=== PATIENT | female | born 1985 | race African-American/Black ===

== ENCOUNTER 2019-09-12 18:45 | Emergency (ER) | payer OTHER, SELFPAY ==
--- NOTE | 2019-09-12 18:53 | ED.GENADULT ---
HPI - General Adult General Chief complaint: Skin/Abscess/Foreign Body Stated complaint: Boil/L/arm Time Seen by Provider: 09/12/19 18:54 Source: patient Mode of arrival: ambulatory Limitations: no limitations History of Present Illness HPI narrative: 34-year-old female patient presents to the [facility] with complaints of a boil to the left underarm x3 days. Patient states that she has a history of this and has been following up with her primary doctor. Patient states she just finished Bactrim on Saturday for some other boils in other places that was given to her by her primary doctor. Patient states that this boil today has been there for about 3 days and is very painful and feels like there is a lot of pressure. Denies any fevers that she is aware of. Related Data Home Medications Medication Instructions Recorded Confirmed carvedilol [Coreg] 25 mg PO BID 07/08/19 09/12/19 losartan 100 mg PO DAILY 07/08/19 09/12/19 nifedipine 90 mg PO DAILY 07/08/19 09/12/19 triamterene-hydrochlorothiazid 1 cap PO DAILY 07/08/19 09/12/19 [Dyazide] Allergies Allergy/AdvReac Type Severity Reaction Status Date / Time morphine Allergy Unknown ITCHING Verified 07/08/19 15:50 Review of Systems Review of Systems: Narrative: CONSTITUTIONAL: Denies fever, chills, or sweats. EYES: Denies visual changes, redness, or discharge. ENT: Denies rhinorrhea, congestion, sore throat, or otalgia. CARDIOVASCULAR: Denies chest pain, palpitations, or edema. RESPIRATORY: Denies cough or dyspnea. GASTROINTESTINAL: Denies abdominal pain, nausea, vomiting, or diarrhea. GENITOURINARY: Denies dysuria or hematuria. SKIN: Denies rash or itching. Positive boil to left underarm x3 days MUSCULOSKELETAL: Denies back pain, joint pain, or myalgia. NEUROLOGIC: Denies headache, numbness, or weakness. PSYCHIATRIC: Denies anxiety or depression. [facility] Past Medical History Medical History (Updated 09/12/19 @ 19:17 by DORCAS Watkins) Abscesses of both axillae Anemia Hypertension Leukocytosis Surgical History Surgical History (Updated 09/12/19 @ 18:56 by DORCAS Watkins) History of Hx of cholecystectomy Hx of tonsillectomy Social History Social History Alcohol intake: current Comments At the time of my signature I agree with nursing past medical history, surgical, social, and family history. There is no relevant family history pertinent to the presenting complaint. Exam Narrative: Exam Narrative: GENERAL: Well-appearing, well-nourished, and in no acute distress. HEAD: Normocephalic, atraumatic. EYES: PERRLA and EOMI. ENT: Nares clear, no rhinorrhea or epistaxis. Mucous membranes moist. NECK: Supple. No lymphadenopathy CHEST: Clear to auscultation. No respiratory distress. HEART: Regular rate and rhythm. No murmur heard. Normal peripheral pulses. ABDOMEN: Soft, nontender, nondistended, normal active bowel sounds. EXTREMITIES: Normal range of motion. No edema. SKIN: Warm, dry, no rash. Patient has an abscess noted to the left axilla area with tenderness, is raised with some hardness area. The raised area does appear to be about 5 to 6 cm in length. There is some surrounding erythema along with some warmth noted to the area. NEURO: No focal deficits. Alert and oriented x3. Course Vital Signs Vital signs: Vital Signs Temperature 35.8 C L 09/12/19 18:54 Pulse Rate 79 09/12/19 18:54 Respiratory Rate 16 09/12/19 18:54 Blood Pressure 152/89 H 09/12/19 18:54 Pulse Oximetry 98 09/12/19 18:54 Temperature 35.8 C L 09/12/19 18:54 Pulse Rate 79 09/12/19 18:54 Respiratory Rate 16 09/12/19 18:54 Blood Pressure 152/89 H 09/12/19 18:54 Pulse Oximetry 98 09/12/19 18:54 Vital signs reviewed. The patient has been informed that they may have pre-hypertension or Hypertension based on a BP reading in the department. I recommend that the patient call the pr
[2019-09-12 18:54] VITALS: BP 152/89; PULSE 79; RESP 16; TEMP 35.8; O2SAT 98
--- NOTE | 2019-09-12 19:20 | PC.NURSE ---
I&D completed by provider pt tolerated procedure well.
== END 2019-09-12 19:25 | disposition home or self-care (01) ==
PROVIDERS: Emergency Provider Nurse Practitioner Family; PCP Internal Medicine Infectious Disease
DX: L02.412 Cutaneous abscess of left axilla (principal); I10 Essential (primary) hypertension
CPT/HCPCS: 10060; 87070; 87075; 87076; 87077; 87186; 87205; 99213; G0463

== ENCOUNTER 2021-10-03 12:43 | Outpatient (CLI) | payer OTHER, SELFPAY ==
--- NOTE | ~2021-10-03 | XR_ITS ---
EXAMINATION: XR knee RT min 4V DATE: 10/03/2021 13:06 INDICATION: Right knee pain. TECHNIQUE: 4 views of right knee were obtained. COMPARISON: None. FINDINGS: There is lateral subluxation of patella. No fracture. There is moderate osteoarthritis of l ateral and patellofemoral compartments and mild osteoarthritis of medial compartment. There is a smal l knee joint effusion. IMPRESSION: 1. Moderate right knee osteoarthritis. 2. Small knee joint effusion. Reviewed, dictated and finalized at location A. RGRADUATE INTERN
== END 2021-10-03 12:44 | disposition home or self-care (01) ==
LOC: ANHIMG 12:47
PROVIDERS: PCP Internal Medicine Infectious Disease; Visit Provider Internal Medicine Infectious Disease
DX: M17.11 Unilateral primary osteoarthritis, right knee (principal); M25.461 Effusion, right knee
CPT/HCPCS: 73564

== ENCOUNTER 2021-11-20 13:15 | Outpatient (RCR) | payer OTHER, SELFPAY ==
--- NOTE | 2021-10-23 15:36 | PTOPEVAL ---
Thank you for referring Ally Benjamin to [facility].? The patient is scheduled to be seen for therapy? 2 x/week for 4 weeks. Please review, sign, date and return this plan of care RYAN. I agree with and certify that the following plan of care is medically necessary. Referring Physician Date Attending Provider: Rayo AgudeloShoaib Referring Provider: Rayo AgudeloShoaib Diagnosis right knee pain Onset 1 month ago Cause unknown Subjective Information She reports chronic knee pain, Query Text:As Reported By Patient/ but this is more intense pain. Family She did have difficulty walking initially, but has improved. Reports limitations with walking, steps, prolonged standing and walking, daily task. Denies any exercise program. No previous therapy. She works at [employer] (now [employer]) with lots of standing. She has applied a muscle rub without improved symptoms. Diagnostic Tests X-Rays For This Problem Yes: Moderate right knee osteoarthritis. Pain Assessment Right Knee(s) Reported Pain Level 0 Pain Description Aching,Dull,Tender on Palpation Pain Frequency Chronic Lowest Pain Intensity 0 Greatest Pain Intensity 5 Lower Extremity Range of Motion General Lower Extremity Range of Motion Limitations Pain Gross Lower Extremity Range of Motion left knee flex: 90 dg Comments right knee flex: 88 dg, painful ROM limited by excessive soft tissue Lower Extremity Muscle Strength Testing Hip Strength Bilateral Hip Flexion Strength 4+ Good + Hip Extension Strength 3- Fair - Hip Abduction Strength 2 Poor Hip Adduction Strength 2+ Poor + Hip Strength Comments pain with right hip resistance partial bridge Knee Strength Bilateral Knee Flexion Strength 4+ Good + Knee Extension Strength 5 Normal Knee Strength Comments tested in seated position Posture Standing Position Weight Distribution Decreased Wt.Bear on (R) Hip Posture (R) Externally Rotated Knee Posture (L) Genu Recurvatum Palpation Assessment Palpation tenderness of lateral edges of right patella and inf asp
--- NOTE | 2021-11-20 15:31 | PTOPEVAL ---
Thank you for referring Ally Benjamin to [facility].? The patient is scheduled to be seen for therapy? ____x/week for ___ weeks. Please review, sign, date and return this plan of care RYAN. I agree with and certify that the following plan of care is medically necessary. Referring Physician Date Admitting Provider: Attending Provider: Rayo AgudeloShoaib Referring Provider: Rayo AgudeloShoaib *PT Outpatient Evaluation Start: 10/23/21 14:35 Freq: Status: Active Protocol: Document 11/20/21 13:17 RACHEL (Rec: 11/20/21 14:04 [facility] [id number]) Therapy Assessment Status Assessment Status Assessment Status Re-evaluation Outpatient Past Medical History Past Medical History Source of Past Medical History Recalled from Previous Visit, Confirmed with Patient/Family Cardiovascular History Hx Hypertension Yes Musculoskeletal History Hx Arthritis Yes: right knee Integumentary History Hx Other Skin Disorders Yes: h/o abcess Evaluation Information Problem Diagnosis right knee pain Onset 1 month ago Cause unknown Additional Evaluation Detail She reports chronic knee pain, but this is more intense pain . Subjective Information Reports her knee pain is Query Text:As Reported By Patient/ better with therapy. She has Family decreased intensity. She is performing her HEP. Reports improved fatoumata with walking. Main issues is transitioning from sit<>stand. She has not tried recipricol pattern on steps. She denies any issues with prolonged standing at work. Pain Assessment Timing of Pain Assessment Timing of Pain Assessment Re-assessment Pain Scale Pain Scale Used Numeric (1 - 10) Self Report Pain Assessment Right Knee(s) Reported Pain Level 2 Pain Description Tightness Pain Frequency Chronic Lowest Pain Intensity 0 Greatest Pain Intensity 2 Pain Score Pain Score 2: Self Report Interventions Used Interventions Used By Clinicians Education,Exercise Lower Extremity Range of Motion General Lower Extremity Range of Motion Gross Lower Extremity Range of Motion no pain with knee motions in Comments seated position Lower Extremity Muscle Strength Testing Hip Strength Bilateral Hip Flexion Strength 4+ Good + Hip Abduction Strength 2+ Poor + Hip Adduction Strength 2+ Poor + Hip Strength C
--- NOTE | 2021-11-20 15:32 | PTOPEVAL ---
Physical Therapy Discharge Summary Thank you for referring Ally Benjamin to [facility].? She has attended 9 therapy visits to address her knee pain. She has improved with pain, leg strength, and function. She has partially met to met her therapy goals at this time. Will DC skilled therapy services with recommendations to continue with HEP. Please review, sign, date and return this discharge summary RYAN. I agree with and certify that the following plan of care is medically necessary. Referring Physician Date Attending Provider: Rayo AgudeloShoaib Referring Provider: Rayo Agudelo, Shoaib Diagnosis right knee pain Onset 1 month ago Cause unknown Additional Evaluation Detail She reports chronic knee pain, but this is more intense pain Subjective Information Reports her knee pain is Query Text:As Reported By Patient/ better with therapy. She has Family decreased intensity. She is performing her HEP. Reports improved fatoumata with walking. Main issues is transitioning from sit<>stand. She has not tried reciprocal pattern on steps. She denies any issues with prolonged standing at work. Pain Assessment Right Knee(s) Reported Pain Level 2 Pain Description Tightness Pain Frequency Chronic Lowest Pain Intensity 0 Greatest Pain Intensity 2 Lower Extremity Range of Motion Gross Lower Extremity Range of Motion no pain with knee motions in seated Lower Extremity Muscle Strength Testing Hip Strength Bilateral Hip Flexion Strength 4+ Good + Hip Abduction Strength 2+ Poor + Hip Adduction Strength 2+ Poor + Hip Strength Comments unable to fatoumata supine position due to boil, Knee Strength Bilateral Knee Flexion Strength 5 Normal Knee Extension Strength 5 Normal Knee Strength Comments tested in seated position Special Tests-Lower Extremity Trendelenburg Sign Positive Left,Positive Right Hip Special Test Comments SLS: left: 8 sec, right 13 sec , no pain change Balance Assessment 5 Time Sit to Stand Time in Seconds 26 5 Time Sit to Stand Comments decreased WB on right LE Query Text:Normative Data: If Greater increased right knee pain to 3/10 Gait Assessment Gait Pattern Antalgic Gait,Trendelenburg Gait Gait Pattern Observed Decreased Stride Length - Left ,Decreased Stride Length - Right,No Heel Strike - Left,No
== END 2021-11-21 09:41 | disposition home or self-care (01) ==
LOC: ANHPT 13:15
PROVIDERS: PCP Internal Medicine Infectious Disease; Referring Provider Internal Medicine Infectious Disease; Visit Provider Internal Medicine Infectious Disease
DX: M25.561 Pain in right knee (principal)
CPT/HCPCS: 97110; 97112; 97161; 97530

== ENCOUNTER 2022-08-22 14:00 | Outpatient (RCR) | payer OTHER, SELFPAY ==
--- NOTE | 2022-06-14 11:28 | PTOPEVAL1 ---
Assessment and note entered by Jessica Villeda, PT Evaluation Information Assessment Status Evaluation Diagnosis B LE lymphedema Onset 3-4 years Reported Pain Level Pain Score Self Report Additional Pain Score Comments pain range of 0-5/10- heavy and tightness in legs; Assessment PT Clinical Summary Ally has the diagnosis of L LE lymphedema. She reports she always have had big legs, but the L leg is getting bigger and skin is hard. She has never had lymphedema treatments. Reports her weight is stable at ~ 400#. With the evaluation, she has a combination of lipedema-lymphedema, with larger thighs and hips; the circumferential measurement of her L leg is 38 .4 cm larger than her R leg; L lower leg tissue is firm and fibrotic, with edema over ankle and dorsum of foot; both knees have decreased flexion ROM and have arthritis in knees; Skilled PT services are indicated for lymphedema treatment, complete decongestive therapy--manual lymph drainage, multi layer compression wraps, LE exercises, education for compression garment for her to obtain and self management of chronic condition of lymphedema. Plan of Care Interventions Intermittent Compression,Lymphedema Compression Pu ,Manual Lymph Drainage,Patient/Caregiver Educati, Therapeutic Activities,Therapeutic Exercise PT Services Indicated Yes Treatment Frequency and 0-3x/wk for 7 weeks, due to therapist availability Duration These treatments will address the objective and functional deficits as defined above. The patient will be advanced safely and appropriately in order for the patient to progress towards his/her prior level of function. Additional exercises will be introduced and as well as a comprehensive home exercise program upon discharge, if needed, ?to ensure carryover of functional gains achieved in the clinic. This treatment plan has been reviewed and agreement upon by the patient.
--- NOTE | 2022-08-01 14:53 | PTOPPROG ---
Assessment and note entered by Jessica Villeda, PT, CLT Evaluation Information Assessment Status Progress Diagnosis B LE lymphedema Onset 3-4 years Subjective Information Ally reports: L leg is manager documentation and easier to move; enjoy the smaller leg and walking is better ; color of my leg is improved; have ordered the compression garment and it will be in next week; Assessment PT Clinical Summary Ally has received 12 PT sessions. Compared to the initial evaluation: L LE has decreased in circumferential measurement by 112.3 cm and skin integrity has improved--decreased fibrotic tissue over lower leg, no papillomas; She has ordered compression calf high garments, which should arrive next week. Education has been provided for lymphedema management, skin care, compression garments, self massage, home intermittent compression pump has been submitted for insurance approval. The goals were partially achieved. Continue PT treatment for lymphedema, 2-3x/wk for 3 weeks. Plan of Care Interventions Intermittent Compression,Manual Lymph Drainage, Patient/Caregiver Educati,Therapeutic Exercise PT Services Indicated Yes PT Services Indicated Yes Treatment Frequency and 2-3x/wk for 3 weeks Duration These treatments will address the objective and functional deficits as defined above. The patient will be advanced safely and appropriately in order for the patient to progress towards his/her prior level of function. Additional exercises will be introduced and as well as a comprehensive home exercise program upon discharge, if needed, ?to ensure carryover of functional gains achieved in the clinic. This treatment plan has been reviewed and agreement upon by the patient.
--- NOTE | 2022-08-16 15:12 | PCPTNOTE ---
Patient called & cancelled scheduled appointment this date due to car trouble.
--- NOTE | 2022-08-17 10:05 | PCPTNOTE ---
Patient called & cancelled scheduled appointment this date due to car trouble.
--- NOTE | 2022-08-22 14:34 | PTOPDC ---
Addendum entered by Jessica Villeda, PT 08/23/22 11:56: Ms. Benjamin has received 5 weeks of lymphedema treatment, with compression wraps, lymph massage, leg exercises and elevation of her legs. She has compression calf high garments that she is now wearing daily. The trial of the basic intermittent compression pump increased her trunk edema, pushing the fluid from her legs into her trunk. She would benefit from the Flexitouch Home Intermittent Compression pump, to assist with lymph fluid drainage from her legs and into her trunk, to manage her chronic condition of lymphedema. Original Note: Assessment and note entered by Jessica Villeda, PT, CLT Evaluation Information Assessment Status Discharge Diagnosis B LE lymphedema Onset 3-4 years Subjective Information Ally reports: compression garments are comfortable, can get them off without any troubles ; just getting off work and been on feet all day; is doing the self massage and leg exercises; been keeping legs elevated as much as can when sitting; ready to be done with therapy; have not heard about the home pump yet; Reported Pain Level Pain Score 0: Self Report Assessment PT Clinical Summary Ally has had 14 PT sessions for B LE lymphedema. Compared to the last reevaluation, she has decreased with the circumferential measurements of her legs: R by 41.2 cm and L by 25.3 cm; compression calf high garments fit well and are comfortable to her. She is independent with her home leg exercises, self MLD, skin care and don/doff garments. The goals were achieved. Ally would benefit from a [employer] Flexitouch intermittent home compression pump, to decrease lymphedema in her legs and trunk, to facilitate lymph flow and decrease risk for cellulitis and for lymphedema management. Discharge PT services. Plan of Care PT Services Indicated No
== END 2022-08-22 14:59 | disposition home or self-care (01) ==
LOC: ANHPT 14:00
PROVIDERS: PCP Internal Medicine Infectious Disease; Visit Provider Internal Medicine Infectious Disease
DX: R60.0 Localized edema (principal)
CPT/HCPCS: 29581; 97016; 97110; 97140; 97161

== ENCOUNTER 2023-01-07 12:13 | Outpatient (CLI) | payer OTHER, SELFPAY ==
--- NOTE | ~2023-01-07 | XR_ITS ---
EXAMINATION: XR lumbar spine 2-3V DATE: 01/07/2023 12:34 INDICATION: Chronic back pain TECHNIQUE: Anteroposterior and lateral views of the lumbar spine, and cone-down lateral view of the l umbosacral junction were obtained. COMPARISON: CT, 04/08/2015 FINDINGS: Bone alignment is normal. There is no fracture. There is mild loss of intervertebral disc s pace height throughout the lumbar spine. The vertebral body heights are maintained. Small degenerativ e osteophytes project from the anterior endplates of multiple vertebral bodies. There is mild facet j oint osteoarthritis of the lower lumbar spine. IMPRESSION: 1. Mild lumbar spondylosis without acute findings or significant interval change. Reviewed, dictated and finalized at location A. IMPRESSION: 1. Mild lumbar spondylosis without acute findings or significant interval karla melara
[2023-01-07 12:53] LABS: Basophils Absolute Auto 0.1 K/mm3 (0.0-0.1); Basophils Percent Auto 0.6 % (0.2-1.2); Eosinophils Absolute Auto 0.4 K/mm3 (0-0.3); Eosinophils Percent Auto 2.5 % (0-4.4); Hematocrit 42.9 % (37.0-47.0); Hemoglobin 15.3 g/dL (12.0-15.0); Immature Granulocyte Absolute 0.06 K/mm3 (0.00-0.031); Immature Granulocyte Percent A 0.4 % (0-0.5); Lymphocytes Absolute Auto 2.64 K/mm3 (0.9-3.2); Lymphocytes Percent Auto 15.4 % (18.3-44.2); Mean Corpuscular HGB Conc 35.7 g/dl (32-36); Mean Corpuscular Hemoglobin 29.3 pg (26-34); Mean Platelet Volume 10.5 fl (7.4-10.4); Monocytes Absolute Auto 1.2 K/mm3 (0.1-0.6); Monocytes Percent Auto 6.8 % (2.6-8.5); Neutrophils Absolute Auto 12.7 K/mm3 (1.3-6.7); Neutrophils Percent Auto 74.3 % (45.5-73.1); Platelet Count Result 316 k/mm3 (150-375); Red Blood Count 5.23 M/mm3 (4.2-5.4); Red Cell Distribution Width 14.3 % (11.5-14.5); White Blood Count 17.1 K/mm3 (4.5-10.0)
[2023-01-07 13:02] LABS: Alanine Aminotransferase 26 U/L (6-35); Albumin Level 3.9 g/dL (3.5-5.1); Alkaline Phosphatase 94 U/L (38-126); Anion Gap 6 mmol/L (8-16); Aspartate Amino Transferase 24 U/L (14-36); Bilirubin,Total 0.7 mg/dL (0.2-1.3); Blood Urea Nitrogen 20 mg/dL (7-17); Calcium 9.1 mg/dL (8.4-10.2); Carbon Dioxide 30 mmol/L (22-30); Chloride 104 mmol/L (98-107); Estimated Glomerular Filt Rate > 60; Glucose 100 mg/dL (65-110); Potassium 3.6 mmol/L (3.4-5.0); Sodium 140 mmol/L (137-145)
== END 2023-01-07 12:14 | disposition home or self-care (01) ==
PROVIDERS: PCP Internal Medicine Infectious Disease; Visit Provider Internal Medicine Infectious Disease
DX: K85.90 Acute pancreatitis without necrosis or infection, unspecified (principal); M47.816 Spondylosis without myelopathy or radiculopathy, lumbar region; M15.9 Polyosteoarthritis, unspecified; Z90.49 Acquired absence of other specified parts of digestive tract; K03.9 Disease of hard tissues of teeth, unspecified; F17.210 Nicotine dependence, cigarettes, uncomplicated; E66.01 Morbid (severe) obesity due to excess calories; G47.30 Sleep apnea, unspecified; N18.31 Chronic kidney disease, stage 3a; E55.9 Vitamin D deficiency, unspecified; I12.9 Hypertensive chronic kidney disease with stage 1 through stage 4 chronic kidney disease, or unspecified chronic kidney disease
CPT/HCPCS: 36415; 72100; 80053; 85025

== ENCOUNTER 2023-01-30 13:15 | Outpatient (CLI) | payer OTHER, SELFPAY ==
--- NOTE | 2023-01-30 14:30 | NEURO_ITS ---
Impression: # Complains of numbness. # Normal peroneal Nerve Conduction study. # Poor responses in left posterior tibial nerve. # Sensory nerve responses unreliable due to weight of patient. # Normal needle/Needle/EMG, no neurogenic changes noted. # Clinical correlation recommended. Nerve Conduction Studies Anti Sensory Summary Table Stim Site NR Peak (ms) P-T Amp (?V) Site1 Site2 Delta-P (ms) Dist (cm) Dax (m/s) Left Sup Fibular Anti Sensory (Ant Lat Mall) UNOBTAINABLE 14 cm NR 14 cm Ant Lat Mall 16.0 Right Sup Fibular Anti Sensory (Ant Lat Mall) 14 cm 3.6 10.3 14 cm Ant Lat Mall 3.6 16.0 44 Left Sural Anti Sensory (Lat Mall) UNOBTAINABLE Calf NR Calf Lat Mall 16.0 Right Sural Anti Sensory (Lat Mall) UNOBTAINABLE Calf NR Calf Lat Mall 16.0 Motor Summary Table Stim Site NR Onset (ms) O-P Amp (mV) Site1 Site2 Delta-0 (ms) Dist (cm) Dax (m/s) Left Peroneal Motor (Vastus Med) Ankle 3.8 2.7 Popit Ankle 7.1 38.0 54 Popit 10.9 0.9 Right Peroneal Motor (Vastus Med) Ankle 3.2 2.3 Popit Ankle 7.6 38.0 50 Popit 10.8 1.7 Left Tibial Motor (Abd Slater Brev) Ankle 4.1 1.0 Knee Ankle 0.0 Knee NR Right Tibial Motor (Abd Slater Brev) Ankle 4.1 2.1 Knee Ankle 8.6 41.0 48 Knee 12.7 1.1 F Wave Studies NR F-Lat (ms) L-R F-Lat (ms) Left Peroneal (Mrkrs) (EDB) 50.88 1.64 Right Peroneal (Mrkrs) (EDB) 49.24 1.64 Left Tibial (Mrkrs) (Abd Hallucis) 51.58 0.47 Right Tibial (Mrkrs) (Abd Hallucis) 52.05 0.47 EMG Side Muscle Nerve Root Ins Act Fibs Amp Dur Recrt Comment Right AntTibialis Dp Br Fibular L4-5 Nml Nml Nml Nml Nml Right Gastroc Tibial S1-2 Nml Nml Nml Nml Nml Right Fibularis Long Sup Br Fibular L5-S1 Nml Nml Nml Nml Nml Right Flex Dig Long Tibial L5-S2 Nml Nml Nml Nml Nml Right Ext Dig Brev Dp Br Fibular L5, S1 Nml Nml Nml Nml Nml Left AntTibialis Dp Br Fibular L4-5 Nml Nml Nml Nml Nml Left Gastroc Tibial S1-2 Nml Nml Nml Nml Nml Left Fibularis Long Sup Br Fibular L5-S1 Nml Nml Nml Nml Nml Left Flex Dig Long Tibial L5-S2 Nml Nml Nml Nml Nml Left Ext Dig Brev Dp Br Fibular L5, S1 Nml Nml Nml Nml Nml MTDD
== END 2023-01-30 13:16 | disposition home or self-care (01) ==
LOC: ANHNEURO 13:16
PROVIDERS: PCP Internal Medicine Infectious Disease; Visit Provider Internal Medicine Infectious Disease
DX: G62.9 Polyneuropathy, unspecified (principal)
CPT/HCPCS: 95886; 95910

== ENCOUNTER 2023-07-25 14:30 | Outpatient (CLI) | payer OTHER, SELFPAY ==
[2023-07-25 15:22] LABS: Influenza A QL RT-PCR Negative (Negative); Influenza B QL RT-PCR Negative (Negative); RSV RNA, RT-PCR Negative (Negative); SARS-CoV-2 RNA PCR Negative (Negative)
== END 2023-07-25 14:31 | disposition home or self-care (01) ==
LOC: ANHLAB 14:31
PROVIDERS: PCP Internal Medicine Infectious Disease; Visit Provider Internal Medicine Infectious Disease
DX: J06.9 Acute upper respiratory infection, unspecified (principal); Z20.822 Contact with and (suspected) exposure to COVID-19
CPT/HCPCS: 87637

== ENCOUNTER 2024-04-24 10:05 | Emergency (ER) | payer OTHER, SELFPAY ==
--- NOTE | ~2024-04-24 | XR_ITS ---
XR hip LT 2V w AP pelvis 04/24/2024 11:04 Indication: Left hip pain after recent injury Procedure: 3 views left hip including AP pelvis Comparison: No prior studies for comparison. Findings: There is anatomic alignment. No fracture, subluxation or dislocation. No soft tissue abnorm ality. No foreign bodies. Impression: 1: No acute bone or joint abnormality. Reviewed, dictated and finalized at location B. Impression: 1: No acute bone or joint abnormality.
[2024-04-24 10:29] VITALS: BP 129/84; PULSE 80; RESP 16; TEMP 37.2; O2SAT 100
--- NOTE | 2024-04-24 12:14 | ED.GENADULT ---
HPI - General Adult General Chief complaint: Unspecified Stated complaint: left hip pain Time Seen by Provider: 04/24/24 11:58 History of Present Illness HPI narrative: 38-year-old female present to the emergency department for evaluation for left lateral hip pain that radiates down to her left knee. Patient states pain started approximately 2 days ago. Patient did attempt to work yesterday and she felt that the pain worsened. Patient denies any specific incident of falls or injuries. Patient states the pain does radiate from her left lateral hip down to her knee but does not go further. Patient denies any pain radiating from her left buttock. Patient denies any associated numbness or weakness. Patient has no prior history of sciatica. Related Data Home Medications Medication Instructions Recorded Confirmed carvedilol 25 mg tablet (Coreg) 25 mg PO BID 07/08/19 08/29/23 losartan 100 mg tablet 100 mg PO DAILY 07/08/19 08/29/23 nifedipine 90 mg tablet,extended 90 mg PO DAILY 07/08/19 08/29/23 release 24 hr triamterene 37.5 1 cap PO DAILY 07/08/19 08/29/23 mg-hydrochlorothiazide 25 mg capsule (Dyazide) Allergies Allergy/AdvReac Type Severity Reaction Status Date / Time morphine Allergy Unknown ITCHING Verified 08/29/23 13:55 Review of Systems Review of Systems: All systems reviewed & are unremarkable except as noted in HPI and below PMFSH Past Medical History Medical History Abnormal Pap smear of cervix Abscesses of both axillae Anemia Hypertension Leukocytosis 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) Surgical History Surgical History H/O colposcopy with cervical biopsy Lgsil + hpv - 08/09/2022 - benign History of Hx of cholecystectomy Hx of tonsillectomy Family History Family History Other Bone cancer Diabetes mellitus Hypertension Lupus Social History Social History (Updated 08/29/23 @ 13:57 by Nikki Velasco MA) Smoking packs per day: 1 Smoking cigarettes per day: 20.0 Years smoked: 20 Smoking pack-years: 20.00 Smoking status: Current some day smoker Tobacco type: cigarettes Alcohol intake: current Alcohol use details: heavy Substance use: never Current Housing: Decline to Answer Concerned About Future Housing: Decline to Answer Difficulty Paying Gas/Electric Bills: Decline to Answer Difficulty Paying for Meds: Decline to Answer Currently Unemployed: Decline to Answer Education: Decline to Answer Difficulty w/ Childcare or Family Care: Decline to Answer Living arrangements: alone Occupation/Education: occupation Additional occupation/education comments: [employer] Gender identity (if verbalized by the patient): Female Sexual Orientation (if Verbalized by the Patient): Straight or Heterosexual Exam Narrative: APPEARANCE: Uncomfortable appearing secondary to left hip pain HEAD: normocephalic, atraumatic. EYES: PERRLA/EOMI, conjunctivae clear. NOSE: Normal no drainage EARS:TMS clear with good light reflex. THROAT: Pharynx clear, no exudate. NECK: Supple. No adenopathy, no masses. RESPIRATORY: Airway patent, respirations nonlabored. Clear to auscultation bilaterally, no rales, rhonchi, wheezing. CARDIOVASCULAR: Regular rate and rhythm without murmurs rubs or gallops. ABDOMINAL: Soft, nontender, nondistended, normal bowel sounds MUSCULOSKELETAL: Left lateral leg tenderness to palpation NEURO: Alert. Cranial nerves II through XII intact. Good gait. Good coordination SKIN: No ecchymosis or rash Course Vital Signs Vital signs: Vital Signs Temperature 98.9 F 04/24/24 10:29 Pulse Rate 80 04/24/24 10:29 Respiratory Rate 16 04/24/24 10:29 Blood Pressure 129/84 04/24/24 10:29 Pulse Oximetry 100 04/24/24 10:29 Temperature 98
[2024-04-24] MEDS: KETOROLAC 30 MG/ML VIAL (*BKC) IM (12:38)
[2024-04-24] MEDS: CYCLOBENZAPRINE HCL 10 MG TABLET PO (12:38)
[2024-04-24] MEDS: HYDROcodone/acetaminophen (*CRX) 5-325 MG TABLET 1 TAB PO (12:39)
[2024-04-27 14:24] LABS: BEDSIDEPREGUCG Negative (Negative)
== END 2024-04-24 12:48 | disposition home or self-care (01) ==
LOC: ANHED 12:21
PROVIDERS: Emergency Provider Emergency Medicine; PCP Internal Medicine Infectious Disease
DX: M25.552 Pain in left hip (principal); I10 Essential (primary) hypertension; F17.210 Nicotine dependence, cigarettes, uncomplicated; Z86.2 Personal history of diseases of the blood and blood-forming organs and certain disorders involving the immune mechanism; Z90.49 Acquired absence of other specified parts of digestive tract
CPT/HCPCS: 73502; 81025; 96372; 99283; A9270; J1885